=== PATIENT | female | born 1975 | race Hispanic/Latino ===

== ENCOUNTER → 2018-05-19 | Outpatient (CLI) | payer MEDICAID ==
[~2018-05-19] MED LIST: GADODIAMIDE 10 MMOL/20 ML ML IV ONE
== END | disposition home or self-care (01) ==
LOC: RAH 09:03
PROVIDERS: ATTEND Family Medicine
DX: N60.02 Solitary cyst of left breast (principal); N60.01 Solitary cyst of right breast
CPT/HCPCS: A9579; C8905

== ENCOUNTER 2020-03-03 15:37 | Emergency (ER) | payer MEDICAID | END 2020-03-03 16:19 | disposition home or self-care (01) | LOC: EDH 15:37 | DX: F41.1 Generalized anxiety disorder (principal); E03.9 Hypothyroidism, unspecified | CPT/HCPCS: 99281 ==

== ENCOUNTER 2020-04-29 18:36 | Emergency (ER) | payer MEDICAID ==
[2020-04-29 19:10] LABS: BASOPHILS % (AUTO) 0.3 % (0.0-5.0); EOSINOPHILS % (AUTO) 0.3 % (0.0-8.0); HEMATOCRIT 36.3 % (36-48); LYMPHOCYTES % (AUTO) 10.7 % (21.0-51.0); MEAN CORPUSCULAR HEMOGLOBIN 25.1 pg (27.0-33.0); MEAN CORPUSCULAR HGB CONC 31.7 g/dL (32.0-36.0); MEAN CORPUSCULAR VOLUME 79.3 fL (79-99); MONOCYTES % (AUTO) 3.1 % (3.0-13.0); NEUTROPHILS % (AUTO) 85.2 % (40.0-77.0); PLATELET COUNT (AUTO) 275 K/uL (130-400); RED BLOOD CELL COUNT(AUTO) 4.58 MIL/uL (4.00-5.50); RED CELL DISTRIBUTION WIDTH 14.1 % (11.0-15.5); WHITE BLOOD COUNT (AUTO) 7.7 K/uL (4.8-10.8)
[2020-04-29] MEDS ORDERED: ONDANSETRON HCL 4 MG/2 ML VIAL ONE (19:21)
[2020-04-29] MEDS ORDERED: SODIUM CHLORIDE 0.9% 1000ML 1,000 ML IV ONE (19:21)
[2020-04-29 19:34] LABS: ALBUMIN 4.1 g/dL (3.5-5.0); BILIRUBIN,TOTAL 0.5 mg/dL (0.2-1.0); CREATININE 0.8 mg/dL (0.5-1.5); POTASSIUM 3.1 mmol/L (3.5-5.1); THYROID STIMULATING HORMONE 0.06 uIU/mL (0.36-3.74); TOTAL PROTEIN, SERUM 7.5 g/dL (6.0-8.3)
[2020-04-29 19:44] LABS: APPEARANCE,URINE Clear (CLEAR); BILIRUBIN,URINE Negative (NEGATIVE); COLOR,URINE Yellow (YELLOW); GLUCOSE, URINE (UA) TRACE mg/dL (NEGATIVE); HCG,QUAL RESULT NEGATIVE (NEGATIVE); KETONES,URINE >=160 mg/dL (NEGATIVE); LEUKOCYTE ESTERASE ,URINE Trace (NEGATIVE); NITRATE,URINE Negative (NEGATIVE); OCCULT BLOOD,URINE Large (NEGATIVE); PROTEIN,URINE Trace mg/dL (NEGATIVE)
[2020-04-29] MEDS ORDERED: ACETAMINOPHEN 325 MG TAB ONE (19:55)
[2020-04-29 20:01] LABS: BACTERIA,URINE Few /HPF (None Seen); MUCUS,URINE Few LPF (None Seen); SQUAMOUS EPITHELIAL CELL,UR Moderate /HPF (0-2)
[2020-04-29] MEDS ORDERED: POTASSIUM BICARB/CIT AC 25 MEQ TABLET.EFF ONE (20:05)
== END 2020-04-29 20:17 | disposition home or self-care (01) ==
LOC: EDH 18:36
DX: N30.00 Acute cystitis without hematuria (principal); E87.6 Hypokalemia; R11.2 Nausea with vomiting, unspecified; E03.9 Hypothyroidism, unspecified
CPT/HCPCS: 36415; 80053; 81001; 81025; 84443; 85025; 96374; 99283; J2405; J7030

== ENCOUNTER 2021-12-19 20:33 | Emergency (ER) | payer MEDICAID ==
[~2021-12-19] VITALS: Ht 152.4 cm; Wt 49.4 kg
[2021-12-19] MEDS ORDERED: 0.9%NACL 1000ML 1,000 ML IV ONE (21:00)
[2021-12-19 21:27] LABS: APPEARANCE,URINE Clear (CLEAR); BILIRUBIN,URINE Negative (NEGATIVE); COLOR,URINE Yellow (YELLOW); GLUCOSE, URINE (UA) Negative (NEGATIVE); KETONES,URINE >=80 mg/dL (NEGATIVE); LEUKOCYTE ESTERASE ,URINE Small (NEGATIVE); NITRATE,URINE Negative (NEGATIVE); OCCULT BLOOD,URINE Moderate (NEGATIVE); PROTEIN,URINE Trace mg/dL (NEGATIVE)
[2021-12-19 21:30] LABS: HCG,QUAL RESULT NEGATIVE (NEGATIVE)
[2021-12-19 21:33] LABS: BACTERIA,URINE Rare /HPF (None Seen); WBC,URINE 0-1 /HPF (0-1)
[2021-12-19 21:34] LABS: SQUAMOUS EPITHELIAL CELL,UR Rare /HPF (0-2)
[2021-12-19] MEDS ORDERED: METOCLOPRAMIDE 10 MG/2 ML VIAL IVP ONE (22:30)
[2021-12-19] MEDS ORDERED: DiphenhydrAMINE HCL 50 MG/ML VIAL IV ONE (22:30)
[2021-12-19] MEDS ORDERED: CEFTRIAXONE 1G VIAL IVP ONE (22:30)
[2021-12-19] MEDS ORDERED: CEPH500B PO (22:51)
[2021-12-19] MEDS ORDERED: ONDA4TAB10 PO (22:51)
[2021-12-19 23:02] VITALS: BP 116/84
== END 2021-12-19 23:10 | disposition home or self-care (01) ==
LOC: EDH 20:33
DX: N39.0 Urinary tract infection, site not specified (principal); J06.9 Acute upper respiratory infection, unspecified; Z20.822 Contact with and (suspected) exposure to COVID-19; E78.00 Pure hypercholesterolemia, unspecified; E03.9 Hypothyroidism, unspecified; Z98.890 Other specified postprocedural states
CPT/HCPCS: 81001; 81025; 87635; 87804 ×2; 87880; 96374; 96375; 99284; C9803; J0696; J1200; J2765; J7030

== ENCOUNTER 2022-03-11 16:56 | Emergency (ER) | payer MEDICAID ==
[~2022-03-11] VITALS: Ht 152.4 cm; Wt 51.3 kg
[~2022-03-11 16:56] MED LIST changes: +CEPH500B PO; -GADODIAMIDE 10 MMOL/20 ML ML IV ONE; +ONDA4TAB10 PO
[2022-03-11 17:30] LABS: APPEARANCE,URINE CLEAR (CLEAR); BILIRUBIN,URINE NEGATIVE (NEGATIVE); COLOR,URINE YELLOW (YELLOW); GLUCOSE, URINE (UA) NEGATIVE (NEGATIVE); KETONES,URINE >=80 mg/dL (NEGATIVE); LEUKOCYTE ESTERASE ,URINE NEGATIVE (NEGATIVE); NITRATE,URINE NEGATIVE (NEGATIVE); OCCULT BLOOD,URINE TRACE-INTACT (NEGATIVE); PH,URINE 7.5 (5.0-8.0); PROTEIN,URINE TRACE mg/dL (NEGATIVE); UROBILINOGEN,URINE 0.2 mg/dL (0.2-1.0)
[2022-03-11] MEDS ORDERED: ONDANSETRON 4MG INJ IVP ONE (17:30)
[2022-03-11] MEDS ORDERED: 0.9%NACL 1000ML 1,000 ML IV ONE (17:30)
[2022-03-11 17:38] LABS: BASOPHILS % (AUTO) 0.2 % (0.0-5.0); EOSINOPHILS % (AUTO) 0.4 % (0.0-8.0); HEMATOCRIT 36.8 % (36-48); LYMPHOCYTES % (AUTO) 7.9 % (21.0-51.0); MEAN CORPUSCULAR HGB CONC 32.1 g/dL (32.0-36.0); NEUTROPHILS % (AUTO) 88.3 % (40.0-77.0); PLATELET COUNT (AUTO) 243 K/uL (130-400); RED BLOOD CELL COUNT(AUTO) 4.72 MIL/uL (4.00-5.50); RED CELL DISTRIBUTION WIDTH 16.8 % (11.0-15.5); WHITE BLOOD COUNT (AUTO) 8.3 K/uL (4.8-10.8)
[2022-03-11 17:41] LABS: BACTERIA,URINE Few /HPF (None Seen); MUCUS,URINE Many LPF (None Seen); SQUAMOUS EPITHELIAL CELL,UR Moderate /HPF (0-2)
[2022-03-11 17:47] LABS: CREATININE 0.7 mg/dL (0.5-1.5); POTASSIUM 3.7 mmol/L (3.5-5.1)
[2022-03-11 17:52] LABS: ALBUMIN 4.1 g/dL (3.5-5.0); TOTAL PROTEIN, SERUM 7.3 g/dL (6.0-8.3)
[2022-03-11 18:00] VITALS: BP 120/71
[2022-03-11] MEDS ORDERED: P-EP-94 PO (18:21)
[2022-03-11] MEDS ORDERED: FLUT15.845 NS (18:21)
[2022-03-11] MEDS ORDERED: ONDA4TAB10 PO (18:21)
== END 2022-03-11 18:30 | disposition home or self-care (01) ==
LOC: EDH 16:56
DX: B34.9 Viral infection, unspecified (principal); Z20.822 Contact with and (suspected) exposure to COVID-19; E78.00 Pure hypercholesterolemia, unspecified; Z88.0 Allergy status to penicillin
CPT/HCPCS: 99284; 96374; 87635; 96361; 85025; 87880; 80053; 87804 ×2; 81001; 36415; C9803; J7030; J2405

== ENCOUNTER 2024-03-21 07:17 | Emergency (ER) | payer BC, MEDICAID ==
[~2024-03-21] VITALS: Ht 157.5 cm; Wt 58.2 kg
[~2024-03-21 07:17] MED LIST changes: +FLUT15.845 NS; +ONDA-243 PO; -ONDA4TAB10 PO; +P-EP-94 PO
[2024-03-21 07:18] VITALS: TEMP 98.6
[2024-03-21 07:49] LABS: BASOPHILS # (AUTO) 0.03 K/uL (0.00-0.20); BASOPHILS % (AUTO) 0.2 % (0.0-5.0); EOSINOPHILS # (AUTO) 0.07 K/uL (0.00-0.70); EOSINOPHILS % (AUTO) 0.5 % (0.0-8.0); HEMATOCRIT 44.4 % (36-48); IMMATURE GRANULOCYTE ABSOLUTE 0.04 K/uL (0-1); LYMPHOCYTES # (AUTO) 1.4 K/uL (1.0-4.8); LYMPHOCYTES % (AUTO) 10.1 % (21.0-51.0); MEAN CORPUSCULAR HEMOGLOBIN 30.2 pg (27.0-33.0); MEAN CORPUSCULAR HGB CONC 34.2 g/dL (32.0-36.0); MEAN CORPUSCULAR VOLUME 88.1 fL (79-99); MONOCYTES # (AUTO) 0.6 K/uL (0.1-1.0); MONOCYTES % (AUTO) 4.3 % (3.0-13.0); NEUTROPHILS # (AUTO) 11.4 K/uL (1.8-7.7); NEUTROPHILS % (AUTO) 84.6 % (40.0-77.0); PLATELET COUNT (AUTO) 246 K/uL (130-400); RED BLOOD CELL COUNT(AUTO) 5.04 MIL/uL (4.00-5.50); RED CELL DISTRIBUTION WIDTH 12.2 % (11.0-15.5); WHITE BLOOD COUNT (AUTO) 13.4 K/uL (4.8-10.8)
[2024-03-21 07:53] LABS: APPEARANCE,URINE CLEAR (CLEAR); BILIRUBIN,URINE NEGATIVE (NEGATIVE); COLOR,URINE YELLOW (YELLOW); GLUCOSE, URINE (UA) 70 mg/dL (NEGATIVE); KETONES,URINE 10 mg/dL (NEGATIVE); LEUKOCYTE ESTERASE ,URINE NEGATIVE Leu/uL (NEGATIVE); NITRATE,URINE NEGATIVE (NEGATIVE); OCCULT BLOOD,URINE MODERATE (NEGATIVE); PH,URINE 5.5 (5.0-8.0); PROTEIN,URINE 20 mg/dL (NEGATIVE); UROBILINOGEN,URINE 0.2 mg/dL (0.2-1.0)
[2024-03-21 08:00] LABS: CREATININE 0.8 mg/dL (0.5-1.0); POTASSIUM 3.3 mmol/L (3.5-5.1)
[2024-03-21 08:08] LABS: ADD UA MICROSCOPIC YES
[2024-03-21] MEDS: ondanSETRON 4MG INJ IVP ONE (08:37)
[2024-03-21] MEDS: morPHINE 2 MG SYG IVP ONE (08:37)
[2024-03-21] MEDS: FAMOTIDINE 20MG TAB PO ONE (08:37)
[2024-03-21 08:43] LABS: BACTERIA,URINE RARE /HPF (None Seen); CALCIUM OXALATE CRYSTALS,UR MOD /LPF (None Seen); MUCUS,URINE RARE LPF (None Seen); SQUAMOUS EPITHELIAL CELL,UR RARE /HPF (0-2)
[2024-03-21 10:51] VITALS: BP 116/61; PULSE 79; RESP 15; O2SAT 98
[2024-03-21] MEDS ORDERED: NITR100C4 PO (11:01)
== END 2024-03-21 11:08 | disposition home or self-care (01) ==
LOC: EDH 07:17
DX: N39.0 Urinary tract infection, site not specified (principal); D72.829 Elevated white blood cell count, unspecified; E03.9 Hypothyroidism, unspecified; Z79.899 Other long term (current) drug therapy; Z90.710 Acquired absence of both cervix and uterus; Z98.890 Other specified postprocedural states
CPT/HCPCS: 99284; 74176; 96374; 96375; 80048; 83690; 85025; 81001; 36415; 93005; J2270; J2405

== ENCOUNTER 2025-05-28 11:37 | Emergency (ER) | payer BC ==
[~2025-05-28] VITALS: Ht 154.9 cm; Wt 55.8 kg
[~2025-05-28 11:37] MED LIST changes: +NITR100C4 PO
--- NOTE | 2025-05-28 11:46 | ERN ---
ED Note History of Present Illness Stated Complaint: MULTIPLE COMPLAINTS Chief Complaint: Multiple Complaints Time Seen by MD: 11:40 Dictation: PATIENT IS A 49-YEAR-OLD FEMALE COMING IN TODAY WITH COMPLAINTS OF HAVING SINUS CONGESTION WITH PRESSURE AND CLEAR RHINITIS ONSET THIS MORNING. SHE STATES SHE HAS BODY ACHES. STATES SHE HAS HAD NAUSEA WITHOUT VOMITING. SHE STATES SHE HAS A HISTORY OF CHRONIC SINUSITIS AND SINUS INFECTIONS. SHE DID NOT GO SEE HER PRIMARY CARE DOCTOR. Allergies: Coded Allergies: No Known Drug Allergies (Unverified Allergy, Unknown, 12/19/21) Penicillins (Unverified Allergy, Unknown, 03/11/22) Home Meds Active Scripts Nitrofurantoin Monohyd/M-Cryst (Macrobid 100 mg Capsule) 100 Mg Capsule, 100 MG PO BID, #14 CAP Prov:LOGAN BULLOCK MD 03/21/24 Loratadine/Pseudoephedrine (Claritin-D 12 Hour Tablet) 1 Each Tab.er.12h, 1 EACH PO BID, #15 TAB Prov:FITTINGJUDITHP 03/11/22 Fluticasone Propionate (Fluticasone Propionate) 15.8 Ml [place].susp, 15.8 ML NS BID, #1 BOTTLE Prov:FITTING,JUDITH CHOEP 03/11/22 Ondansetron (Ondansetron Odt) 4 Mg Tab.rapdis, 4 MG PO TID, #10 TAB Prov:FITTING,JUDITH T[employer] I TEACHER 03/11/22 Ondansetron (Ondansetron Odt) 4 Mg Tab.rapdis, 8 MG PO Q8H PRN for NAUSEA/VOMITING, #15 TAB Prov:FITTING,JUDITH TITLE I TEACHER 12/19/21 Cephalexin Monohydrate (Keflex) 500 Mg Cap, 500 MG PO QID for 7 Days, #28 CAP Prov:FITTING,JUDITH TITLE I TEACHER 12/19/21 Past Medical History Past Medical History: Hypothyroid Additional Past Medical Hx: THYROID PROBLEMS Surgical History: Hysterectomy Surgical History Other: REMOVAL OF CYST TO LEFT BREAST Family History: Negative Social History: Negative History: Not Applicable RN Note Reviewed/Agreed w/PFSH: Yes Review of System Dictation CONSTITUTIONAL: NEGATIVE EXCEPT FOR HPI HEAD/FACE: NEGATIVE EXCEPT FOR HPI EENT: NEGATIVE EXCEPT FOR HPI SINUS CONGESTION/PRESSURE RESPIRATORY: NEGATIVE EXCEPT FOR HPI GASTROINTESTINAL/ABDOMINAL: NEGATIVE EXCEPT FOR HPI NAUSEA VOMITING X1 GENITOURINARY: NEGATIVE EXCEPT FOR HPI MUSCULOSKELETAL: NEGATIVE EXCEPT FOR HPI INTEGUMENTARY: NEGATIVE EXCEPT FOR HPI NEUROLOGICAL/PSYCH: NEGATIVE EXCEPT FOR HPI HEMATOLOGIC/LYMPHATIC: NEGATIVE EXCEPT FOR HPI ALL SYSTEMS NEGATIVE, EXCEPT NOTED ABOVE. 13 POINT REVIEW OF SYSTEMS ASSESSED AND ALL NEGATIVE EXCEPT FOR ABOVE. Initial Vital Sign VS Vital Signs Date Time Temp Pulse Resp B/P (MAP) Pulse Ox O2 Delivery O2 Flow Rate FiO2 05/28/25 11:50 97.3 77 16 131/77 98 Room Air 0 Physical Exam Dictation VITAL SIGNS REVIEWED GENERAL APPEARANCE: ALERT, ORIENTED X 3, MILD ACUTE DISTRESS, WELL DEVELOPED, NOURISHED. HEAD AND FACE: NON-TRAUMATIC. EYES: PERRL, PINK CONJUNCTIVAS, EYELID NO TRAUMA, ANTERIOR CHAMBER WITH ARCUS SENILIS. EARS: PINNAS I PATIENT HAS SINUS PRESSURE TENDERNESS TO FRONTAL AND ETHMOID SINUSES. NASAL MEMBRANES BOGGY CLEAR RHINITIS OROPHARYNX: MOUTH NORMAL, TONGUE PINK, PHARYNX CLEAR, MILD PHARYNGEAL ERYTHEMA, TONSILS NO EXUDATES, NO ABSCESSES NOTED, MUCOUS MEMBRANE MOIST UVULA MIDLINE, VOICE IS CLEAR NECK: SUPPLE, NON-TENDER, NO THYROMEGALY, NO MASSES, NO JVD, NO BRUITS BREAST:DEFERRED CHEST:NO TENDERNESS, NO CREPITUS, NO PARADOXICAL MOVEMENT, NO RETRACTIONS LUNGS:CLEAR, WELL-VENTILATED, SYMMETRIC, NO RALES, NO WHEEZING, NO RHONCHI, NO STRIDOR, GOOD BREATH SOUNDS BILATERALLY HEART: REGULAR RATE, REGULAR RHYTHM, NO MURMUR, NO GALLOPS VASCULAR: NO PERIPHERAL EDEMA, ABDOMEN: SOFT, POSITIVE BOWEL SOUNDS, NONDISTENDED, NO GUARDING, NONTENDER, NO REBOUND, NO MASSES NO HEPATOMEGALY, NO SPLENOMEGALY, NO PHILLIPS'S SIGN, NO HERNIAS. NO FOCAL PAIN RECTAL: DEFERRED GENITAL: DEFERRED NEUROLOGICAL: NORMAL SPEECH, MOTOR FUNCTION INTACT, SENSORY FUNCTION INTACT MUSCULOSKELETAL: NECK NONTENDER, FULL RANGE OF MOTION, BACK NONTENDER, FULL RANGE OF MOTION, EXTREMITIES: NONTENDER, FULL RANGE OF MOTION SKIN: COLOR PINK, DRY, NO TURGOR, NO RASH, NO LACERATIONS, NO ABRASIONS, NO CONTUSIONS. LYMPHATIC: DEFERRED Results (Laboratory/Radiology) Laboratory/Radiology Laboratory Tests Test 05/28/25 12:52 Influenza Type A Antigen Negative For Type A Influenza Type B Antigen Negative For Type B SARS-CoV-2 Antigen (Rapid) PRESUMPTIVE NEGATIVE Group A Streptococcus Rapid negative (NEGATIVE) Labs Reviewed?: Yes ED Course ED Course Orders Procedure Category Date Status Time Covid19 (Sars Antigen LAB 05/28/25 Complete Rapid) 11:43 Rapid (Group A Strep) LAB 05/28/25 Complete 11:43 Influenza Type A & B, LAB 05/28/25 Complete Rapid 11:43 Ondansetron Odt 4mg PHA 05/28/25 Complete Tab (Zofran 4mg Odt) 12:00 Acetaminophen 500mg PHA 05/28/25 Complete Tab (Tylenol 500mg T 12:00 Current Medications Medications (Trade) Dose Ordered Sig/Sharif Route PRN Reason Start Time Stop Time Status Last Admin Dose Admin Acetaminophen (TYLenol 500MG TAB) 1,000 mg ONCE ONCE PO 05/28/25 12:00 05/28/25 12:01 DC Ondansetron HCl (zoFRAN 4MG ODT) 4 mg ONCE ONCE SL 05/28/25 12:00 05/28/25 12:01 DC Vital Signs Date Time Temp Pulse Resp B/P (MAP) Pulse Ox O2 Delivery O2 Flow Rate FiO2 05/28/25 11:50 97.3 77 16 131/77 98 Room Air 0 1620/PATIENT STATES SHE HAS HAD CHRONIC SINUS CONGESTION AND DRAINAGE WITH PAIN OFF AND ON FOR SEVERAL YEARS. SHE SAID SHE HAS BEEN TO HER DOCTOR AT [facility] WHO TOLD HER HE WOULD SEND HER TO AN ENT HOWEVER HE NEVER REFERRED HER. I ADVISED HER THAT I DO NOT HAVE ENT ON-CALL AT THIS HOSPITAL. SHE IS AFEBRILE AT THIS TIME NO NAUSEA VOMITING SHE STATES SHE IS SPITTING UP PHLEGM. PATIENT WILL BE GIVEN PAIN MEDS TO INCLUDE DECADRON AND TORADOL DISCHARGED HOME WITH LEVAQUIN, MEDROL DOSEPAK. TOLD SEE HER PRIMARY CARE DOCTOR TOMORROW WITHOUT FOR FOR FOLLOW UP AND MANAGEMENT TO INCLUDE REFERRAL TO AN EYE YOUR NOSE AND THROAT SPECIALIST Medical Decision Making MDM MEDICAL DISCHARGE MAKING BASED ON SWABS FOR FLU COVID AND STREP. PATIENT IS AFEBRILE AT THIS TIME SHE HAS SINUS CONGESTION PRESSURE AND PAIN OVER THE FRONTAL AND ETHMOID SINUSES MUCOUS MEMBRANES BOGGY WE WILL TREAT PATIENT FOR ACUTE SINUSITIS REFERRED TO HER PRIMARY CARE DOCTOR AT [facility] FOR ENT REFERRAL. DX & DISP Disposition: Discharge Departure Impression: Primary Impression: Acute bacterial rhinosinusitis Additional Impression: Sinus headache Condition: Stable Scripts Ketorolac Tromethamine (Ketorolac Tromethamine) 10 Mg Tablet 1 TAB PO Q6HPRN PRN for pain for 5 Days, #20 TAB 0 Refills Prov: WILFREDO NATH JANIS 05/28/25 Methylprednisolone (Medrol) 4 Mg Tab.ds.pk 1 TAB PO AD for 6 Days, #21 TAB 0 Refills 6 on day 1 then reduce by one tablet daily until gone Prov: WILFREDO NATH Pa BRUCE 05/28/25 Levofloxacin (Levofloxacin) 500 Mg Tablet 1 TAB PO DAILY for 10 Days, #10 TAB 0 Refills Prov: WILFREDO NATH JANIS 05/28/25 Additional Instructions: FOLLOW-UP WITH PRIMARY CARE PROVIDER IN 1 TO 2 DAYS. TAKE MEDICATIONS DIRECTED HERE IN THE EMERGENCY ROOM. OKAY TO CONTINUE HOME MEDICATIONS UNLESS OTHERWISE DISCUSSED DURING YOUR VISIT IN THE EMERGENCY ROOM TODAY. RETURN TO YOUR NEAREST EMERGENCY ROOM IF SYMPTOMS WORSEN OR IF THERE IS NO IMPROVEMENT. CALL 911 IF YOU NEED IMMEDIATE ASSISTANCE. TAKE TYLENOL OR MOTRIN OVER-THE- COUNTER NEEDED AND IF NO CONTRAINDICATIONS ARE PRESENT. INCREASE ORAL HYDRATION. A WOUND CULTURE OR URINE CULTURE WAS ORDERED HERE IN THE EMERGENCY ROOM DEPARTMENT PLEASE FOLLOW-UP WITH PRIMARY CARE PROVIDER AND ADVISE THEM TO GET REPEAT PORTS FROM OUR FACILITY. IF YOU HAD ANY PARISH WRAP/SPLINTS THAT WERE APPLIED HERE, PLEASE DO NOT REMOVE THEM UNTIL YOU SEE YOUR PRIMARY CARE OR SPECIALTY. TAKE MEDROL DOSEPAK DIRECTED UNTIL GONE. TAKE LEVAQUIN DIRECTED DAILY UNTIL GONE. SUGGEST CLARITIN OR ZYRTEC 10 MG [id number] DAILY TAKE KETOROLAC DIRECTED FOR YOUR SINUS HEADACHE. SEE YOUR DOCTOR IN 1-2 DAYS FOR REFERRAL TO ENT SPECIALIST FOR YOUR CHRONIC SINUSITIS AND PAIN. Referrals: TRELL TAM MD (PCP) Time of Disposition: 16:25 I have reviewed the case, and I agree with, Diagnosis and Plan WILFREDO NATH JANIS May 28, 2025 11:46
[2025-05-28 13:17] LABS: RAPID GROUP A STREP negative (NEGATIVE)
[2025-05-28 13:28] LABS: COVID19 (SARS ANTIGEN RAPID) PRESUMPTIVE NEGATIVE (NEGATIVE); INFLUENZA TYPE A Negative For Type A (NEGATIVE); INFLUENZA TYPE B Negative For Type B (NEGATIVE)
[2025-05-28] MEDS ORDERED: KETO10TA2 PO (16:26)
[2025-05-28] MEDS ORDERED: LEVO-70 PO (16:26)
[2025-05-28] MEDS ORDERED: METH4TAB3 PO (16:26)
[2025-05-28 17:23] VITALS: BP 127/73; PULSE 74; RESP 16; TEMP 97.9; O2SAT 98
== END 2025-05-28 17:45 | disposition home or self-care (01) ==
LOC: EDH 11:37
DX: J01.90 Acute sinusitis, unspecified (principal); B96.89 Other specified bacterial agents as the cause of diseases classified elsewhere; E03.9 Hypothyroidism, unspecified; Z20.822 Contact with and (suspected) exposure to COVID-19; Z88.0 Allergy status to penicillin; Z90.710 Acquired absence of both cervix and uterus
CPT/HCPCS: 99284; 87426; 87880; 87804 ×2; 96372 ×2; J1100; J1885